=== PATIENT | female | born 1965 | race Caucasian/White ===

== ENCOUNTER 2018-06-01 15:45 | Emergency (ER) | payer OTHER ==
--- NOTE | 2018-06-01 16:04 | ED ---
HPI Chest Pain - HPI Summary HPI Summary: This patient is a 52 year old F presenting to [facility] with a chief complaint of back pain radiating to her chest 15 minutes [employer]. Patient was also SOB. The patient states she has Cardiac Disease on both sides of her family, with her mother having an HI at her current age. She took 2 x 324 ASA at home [employer]ERCIAL [employer]. She also states she is anxious and could be causing the SOB. She rates the pain 3/ 10 in severity after initially feeling it was 8/10 in severity. - History of Current Complaint Chief Complaint: EDChestPainROMI Time Seen by Provider: 06/01/18 15:49 Hx Obtained From: Patient Hx Last Menstrual Period: 04/22/15 Onset/Duration: Started Minutes Ago Timing: Constant Initial Severity: Severe Current Severity: Mild Pain Intensity: 3 Pain Scale Used: 0-10 Numeric Chest Pain Location: Diffuse Chest Pain Radiates To:: Back Associated Signs and Symptoms: Positive: Anxiety - Risk Factors AMI/ACS Risk Factors: Family History - HI in mother. CAD in Father. - Allergy/Home Medications Allergies/Adverse Reactions: Allergies Allergy/AdvReac Type Severity Reaction Status Date / Time Penicillins Allergy Anaphylatic Verified 06/01/18 15:49 Shock PMH/Surg Hx/FS Hx/Imm Hx Endocrine/Hematology History: Denies: Hx Diabetes, Hx Thyroid Disease Cardiovascular History: Denies: Hx Hypertension Respiratory History: Denies: Hx Asthma, Hx Chronic Obstructive Pulmonary Disease (COPD) GI History: Denies: Hx Ulcer - Surgical History Surgery Procedure, Year, and Place: 1997 Infectious Disease History: No Infectious Disease History: Denies: Hx Hepatitis, Hx Human Immunodeficiency Virus (HIV), Traveled Outside the [place] in Last 30 Days - Social History Alcohol Use: Daily Substance Use Type: Reports: None Smoking Status (MU): Never Smoked Tobacco Review of Systems Positive: Skin Diaphoresis Positive: Chest Pain, Other - Back pain Positive: Shortness Of Breath Positive: Anxious All Other Systems Reviewed And Are Negative: Yes Physical Exam - Summary Physical Exam Summary: VITAL SIGNS: Reviewed. GENERAL: Patient is a well-developed and nourished FEMALE who is lying comfortable in the stretcher. Patient is not in any acute respiratory distress.Anxious. HEAD AND FACE: No signs of trauma. No ecchymosis, hematomas or skull depressions. No sinus tenderness. EYES: PERRLA, EOMI x 2, No injected conjunctiva, no nystagmus. EARS: Hearing grossly intact. Ear canals and tympanic membranes are within normal limits. MOUTH: Oropharynx within normal limits. NECK: Supple, trachea is midline, no adenopathy, no JVD, no carotid bruit, no c- spine tenderness, neck with full ROM. CHEST: Symmetric, no tenderness at palpation LUNGS: Clear to auscultation bilaterally. No wheezing or crackles. CVS: Regular rate and rhythm, S1 and S2 present, no murmurs or gallops appreciated. ABDOMEN: Soft, non-tender. No signs of distention. No rebound no guarding, and no masses palpated. Bowel sounds are normal. EXTREMITIES: FROM in all major joints, no edema, no cyanosis or clubbing. NEURO: Alert and oriented x 3. No acute neurological deficits. Speech is normal and follows commands. SKIN: Dry and warm Triage Information Reviewed: Yes Vital Signs On Initial Exam: Initial Vitals Temp Pulse Resp BP Pulse Ox 97.3 F 74 24 108/85 100 06/01/18 15:50 06/01/18 15:50 06/01/18 15:50 06/01/18 15:50 06/01/18 15:50 Vital Signs Reviewed: Yes Diagnostics - Vital Signs Vital Signs Temp Pulse Resp BP Pulse Ox 06/01/18 15:50 97.3 F 74 24 108/85 100 - Laboratory Result Diagrams: 06/01/18 15:55 06/01/18 15:55 Lab Statement: Any lab studies that have been ordered have been reviewed, and results considered in the medical decision making process. - Radiology Chest XR Xray Interpretation: No Acute Changes Radiology Interpretation Completed By: Radiologist - No active cardiopulmonary disease noted. ED Provider has reviewed this report - EKG 1553 Cardiac Rate: NL - 69 BPM EKG Rhythm: Sinus Rhythm ST Segment: Normal EKG Interpretation: Q-waves in III. Re-Evaluation - Re-Evaluation First Eval Re-Evaluation Time: 17:27 Change: Improved Comment: Discussed results and further treatment with patient. Chest Pain Course/Dx - Course Assessment/Plan: This patient is a 52 year old F presenting to [facility] with a chief complaint of back pain radiating to her chest 15 minutes [employer]. Patient was also SOB. The patient states she has Cardiac Disease on both sides of her family , with her mother having an HI at her current age. She took 2 x 324 ASA at home [employer]. She also states she is anxious and could be causing the SOB. She rates the pain 3/10 in severity after initially feeling it was 8/10 in severity. Chest x- ray impression: No active Pulmonary disease. Blood work without any significant abnormality, but his level is 3.2, creatinine 1.08, glucose 137, AST is 88, AST is 57 and alkaline phosphatase 147. Troponin is 0.00. D-dimer is less than 200. In the ER course the patient has remained calm. Symptoms are resolved. EKG shows a normal sinus rhythm with no ST elevations. Patient is awaiting for the second troponin. At this point the patient also was given potassium chloride for the hypokalemia. She will be signed out to Dr. Garcia at shift change. Dr. Garcia will check for the second troponin and if negative the patient can be safely discharged home with follow-up with primary care physician. Patient has no comorbidities therefore she can follow with the primary care physician. Heart score is equal to 1. - Chest Pain Differential Diagnosis/HQI/PQRI: Acute HI, ACS, Angina, CHF, Chest Wall, GI Disease - Diagnoses Provider Diagnoses: Chest pain Discharge - Sign-Out/Discharge Documenting (check all that apply): Sign-Out Patient Signing out patient TO: Shanae Garcia - Awaiting results: Sign-out at shift change. - Discharge Plan Condition: Stable Disposition: HOME Patient Education Materials: Chest Pain (ED) Referrals: Michael Negro MD [Medical Doctor] - 3 Days Additional Instructions: Follow up with senior maintenance technician RETURN TO ED FOR ANY NEW OR WORSENING SYMPTOMS. - Attestation Statements Document Initiated by Karla: Yes Documenting Scribe: Pawel Reece Provider For Whom Karla is Documenting (Include Credential): Aj Subramanian MD Scribe Attestation: Pawel Hardy, scribed for Aj Subramanian MD on 06/02/18 at 0751. Scribe Documentation Reviewed: Yes Provider Attestation: The documentation as recorded by the Pawel iqbal accurately reflects the service I personally performed and the decisions made by me, Aj Subramanian MD
[2018-06-01 16:12] LABS: ABS Basophils 0 10^3/ul (0-0.2); ABS Eosinophils 0.1 10^3/ul (0-0.6); ABS Lymphocytes 2.4 10^3/ul (1.0-4.8); ABS Monocytes 0.4 10^3/ul (0-0.8); ABS Neutrophils 4.3 10^3/ul (1.5-7.7); ABS Nucleated RBC 0 10^3/ul; Eosinophil % 0.8 % (0-6); Hematocrit 39 % (35-47); Hemoglobin 13.6 g/dl (12.0-16.0); Lymphocyte % 33.4 % (25-47); Mean Corpuscular HGB Conc 35 g/dl (31-36); Mean Corpuscular Hemoglobin 29 pg (27-31); Mean Corpuscular Volume 85 fL (80-97); Mean Platelet Volume 8.5 um3 (7.4-10.4); Nucleated Red Blood Cells % 0.1; Platelet Count 240 10^3/ul (150-450); Red Blood Count 4.63 10^6/ul (4.00-5.40); Red Cell Distribution Width 13 % (10.5-15); White Blood Count 7.2 10^3/ul (3.5-10.8)
[2018-06-01 16:20] LABS: INR 0.93 (0.77-1.02)
[2018-06-01 16:23] LABS: EGFR Non-African American 52.9 (>60)
--- NOTE | 2018-06-01 16:52 | RAD ---
Indication: Chest pain. Single frontal view of the chest performed at 1611 hours was reviewed. No prior study is available. No mediastinal shift is noted. Heart is of normal size and configuration. Lung baez appear clear. IMPRESSION: NO ACTIVE CARDIOPULMONARY DISEASE IS NOTED.
[2018-06-01] MEDS ORDERED: Potassium Chlor TAB* 20 MEQ TAB.ER PO ONE (18:47)
[2018-06-01 18:48] LABS: Urine Appearance Cloudy; Urine Blood Negative (Negative); Urine Color Yellow; Urine Ketones Trace (Negative); Urine Protein 1+(30 mg/dL) (Negative); Urine Red Blood Cell Absent (Absent); Urine Specific Gravity 1.025 (1.010-1.030); Urine Urobilinogen Negative (Negative); Urine White Blood Cell 1+(6-10/hpf) (Absent)
--- NOTE | 2018-06-01 19:48 | ED ---
Progress - Progress Note Progress Note: Dr. Garcia received pt sign out from Dr. Subramanian awaiting second troponin levels. Troponin levels came back negative. Pt will be discharged home and told to follow up with car blocker. Pt is agreeable with this plan. Re-Evaluation - Re-Evaluation First Eval Re-Evaluation Time: 17:27 Change: Improved Comment: Discussed results and further treatment with patient. Course/Dx - Course Course Of Treatment: Dr. Garcia received pt sign out from Dr. Subramanian awaiting second troponin levels. Troponin levels came back negative. Pt will be discharged home and told to follow up with car blocker. Pt is agreeable with this plan. - Diagnoses Provider Diagnoses: Chest pain Discharge - Sign-Out/Discharge Documenting (check all that apply): Patient Departure - Discharge, Receiving Sign-Out Receiving patient FROM: Aj Subramanian - Discharge Plan Condition: Stable Disposition: HOME Patient Education Materials: Chest Pain (ED) Referrals: Michael Negro MD [Medical Doctor] - 3 Days Additional Instructions: Follow up with car blocker RETURN TO ED FOR ANY NEW OR WORSENING SYMPTOMS. - Attestation Statements Document Initiated by Scribe: Yes Documenting Scribe: Lance Green Provider For Whom Scribe is Documenting (Include Credential): Dr. Shanae Garcia MD Scribe Attestation: Lance Hardy, scribed for Dr. Shanae Garcia MD on 06/01/18 at 1953.
[2018-06-01 20:34] VITALS: BP 155/91
== END 2018-06-01 20:35 | disposition home or self-care (01) ==
LOC: ED 15:45
DX: R07.9 Chest pain, unspecified (principal); M54.9 Dorsalgia, unspecified; F41.9 Anxiety disorder, unspecified; Z88.0 Allergy status to penicillin
CPT/HCPCS: 36415; 71045; 80053; 81003; 81015; 82550; 82553; 83605; 83735; 83880; 84443; 84484; 85025; 85379; 85610; 85730; 87086; 93005; 99283; A9270-GY